=== PATIENT | female | born 1975 | race Caucasian/White ===

== ENCOUNTER 2021-06-03 14:58 | Emergency (ER) | payer SELFPAY ==
--- NOTE | 2021-06-03 15:45 | EDM.PDOC ---
ED HPI GENERAL MEDICAL PROBLEM - General Stated Complaint: SHARP BACK/SHOULDER PAIN Time Seen by Provider: 06/03/21 15:10 Source of Information: Reports: Patient History Limitations: Reports: No Limitations - History of Present Illness INITIAL COMMENTS - FREE TEXT/NARRATIVE: Sonia c/o mid-upper back sharp pain X 3 days at time radiates to left anterior chest, denies any hx of trauma but report extended standing lately as she has been working at the [employer] , pt denies Hx of similar problems , report stable chronic smoker cough and dyspnea, denies fever chills or any other associated sx or concerns. Upper back radiating to mid-chest Pain Score (Numeric/FACES): 9 - Related Data Allergies Allergy/AdvReac Type Severity Reaction Status Date / Time methylphenidate Allergy Cannot Verified 06/03/21 15:56 [From Ritalin] Remember prochlorperazine Allergy Cannot Verified 06/03/21 15:56 [From Compazine] Remember Home Meds: Home Meds Multivitamin [Multi-Day Vitamins] 1 each PO DAILY 06/03/21 [History] ED ROS GENERAL - Review of Systems Review Of Systems: See Below Constitutional: Reports: No Symptoms Respiratory: Reports: No Symptoms Cardiovascular: Reports: No Symptoms GI/Abdominal: Reports: No Symptoms ED EXAM, GENERAL - Physical Exam Exam: See Below Exam Limited By: No Limitations General Appearance: Alert, Mild Distress Throat/Mouth: Normal Inspection Head: Atraumatic Neck: Normal Inspection Respiratory/Chest: No Respiratory Distress, Lungs Clear Cardiovascular: Normal Peripheral Pulses, Regular Rate, Rhythm GI/Abdominal: Normal Bowel Sounds, Soft, Non-Tender Back Exam: Normal Inspection, Full Range of Motion, Other (tender on palpatian of left trapizius muscle ) Extremities: Normal Inspection, Normal Range of Motion Neurological: Alert, Oriented, CN II-XII Intact, No Motor/Sensory Deficits Course - Vital Signs Text/Narrative:: CXR shows no acute findings, pt has muscular upper back pain, was given here Toradol and ativan, and was given Rx on Flexeril to use with OTC motrin , pt to follow with PCP in 1 week if continued pain. Last Recorded V/S: Last Vital Signs Temp 36.6 C 06/03/21 15:01 Pulse 104 H 06/03/21 15:01 Resp 18 06/03/21 15:01 BP 154/103 H 06/03/21 15:01 Pulse Ox 97 06/03/21 15:01 - Orders/Labs/Meds Orders: Active Orders 24 hr Category Date Time Status Chest 2V [CR] Stat Exams 06/03/21 15:48 Taken Meds: Medications Discontinued Medications Generic Name Dose Route Start Last Admin Trade Name Leticia PRN Reason Stop Dose Admin Ketorolac Tromethamine 60 mg 06/03/21 15:48 Ketorolac 30 Mg/Ml Sdv IM 06/03/21 15:49 ONETIME ONE Lorazepam 1 mg 06/03/21 15:48 Lorazepam 2 Mg/Ml Sdv IM 06/03/21 15:49 ONETIME ONE Departure - Departure Time of Disposition: 16:24 Disposition: Home, Self-Care 01 Clinical Impression: Muscular pain - Discharge Information Sepsis Event Note (ED) - Focused Exam Vital Signs: Vital Signs Temp Pulse Resp BP Pulse Ox 06/03/21 15:01 36.6 C 104 H 18 154/103 H 97 - My Orders Last 24 Hours: My Active Orders 06/03/21 15:48 Chest 2V [CR] Stat - Assessment/Plan Last 24 Hours: My Active Orders 06/03/21 15:48 Chest 2V [CR] Stat
[2021-06-03] MEDS ORDERED: Ketorolac 30 MG/ML SDV IM ONE (15:48)
[2021-06-03] MEDS ORDERED: LORazepam 2 MG/ML SDV IM ONE (15:48)
--- NOTE | 2021-06-06 12:11 | CR ---
INDICATION: Cough, pain between shoulder blades for about 3 days. Smoker since age 13 - 1/2 pack a day. CHEST, TWO VIEWS: PA and lateral views of the chest were obtained 06/03/2021 - no comparisons. The heart, mediastinum and bony thorax are unremarkable. Overlying EKG leads are noted. What appears to be a healing rib fracture is noted anteriorly on the right ribs # 3 and 4. A definite active infiltrate or effusion was not identified. However, there is moderate bronchial wall cuffing at the lung bases, which may may represent fibrosis and/or active peribronchial disease - correlate clinically. MTDD
--- NOTE | 2021-06-08 19:42 | PCM.EKG ---
#1 Interpretation EKG Date: 06/03/21 Rhythm: NSR Rate (Beats/Min): 101 Keavy: Normal P-Wave: Present Comparison: NA - No Prior EKG
== END 2021-06-03 17:00 | disposition home or self-care (01) ==
LOC: FB.ED 14:58
DX: M54.6 Pain in thoracic spine (principal); Z88.8 Allergy status to other drugs, medicaments and biological substances
CPT/HCPCS: 71046; 96372; 99283; J1885; J2060